=== PATIENT | female | born 1965 | race Caucasian/White ===

== ENCOUNTER 2020-08-16 11:30 | Emergency (ER) | payer BC ==
[~2020-08-16] VITALS: Ht 175.3 cm; Wt 75.0 kg
[2020-08-16 11:36] VITALS: BP 140/79
[2020-08-16] MEDS ORDERED: HYDROcodone/acetaminophen 10/325mg tab PO ONE (11:40)
[2020-08-16] MEDS ORDERED: ketorolac trometh inj. 60 MG/2 ML VIAL IM ONE (11:40)
[2020-08-16] MEDS ORDERED: HYDR-3965 PO (12:15)
== END 2020-08-16 12:21 | disposition home or self-care (01) ==
LOC: ER 11:30
DX: S52.501A Unspecified fracture of the lower end of right radius, initial encounter for closed fracture (principal); Z79.899 Other long term (current) drug therapy; W18.41XA Slipping, tripping and stumbling without falling due to stepping on object, initial encounter; Z91.81 History of falling; Y93.01 Activity, walking, marching and hiking; Y92.89 Other specified places as the place of occurrence of the external cause; Y99.8 Other external cause status
CPT/HCPCS: 29125; 73100; 73110; 73130; 96372; 99284; J1885